=== PATIENT | male | born 2000 | race Hispanic/Latino ===

== ENCOUNTER 2018-09-02 23:40 | Emergency (ER) | payer SELFPAY ==
[2018-09-03] MEDS ORDERED: TETANUS & DIPHTHERIA TOX,ADULT 0.5 ML VIAL ONE (00:33)
[2018-09-03] MEDS ORDERED: NA CHLORIDE 0.9% 1,000 ML ONE (00:34)
[2018-09-03] MEDS ORDERED: LIDOCAINE 1% W/EPI 1:100,000 MDV 50 ML VIAL ONE (01:14)
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
--- NOTE | 2018-09-03 10:21 | RAD REPORT ---
EXAM DESCRIPTION: CT - Thorax Wo Blayne - 09/03/2018 1:56 am CLINICAL HISTORY: PAIN COMPARISON: None Available TECHNIQUE: Multiple helical axial tomographic images were obtained of the chest without intravenous contrast. Coronal and sagittal reformatted images were obtained. This exam was performed according to our departmental dose-optimization program, which includes autom ated exposure control, adjustment of the mA and/or kV according to patient size and/or use of iterati ve reconstruction technique. FINDINGS: Exam mildly limited given that the lung apices are not entirely included. Thyroid gland: unremarkable. Axilla: unremarkable. Aorta: No evidence of aortic aneurysm. Mediastinum: Unremarkable. No adenopathy. Heart: Heart is normal in size. Lungs/airways: No consolidation. Airways are patent. Pleural spaces: No significant pleural effusion. No pneumothorax. Osseous: Unremarkable. Soft tissues: Unremarkable. Visualized abdomen: Unremarkable. IMPRESSION: Mildly limited exam as above. No obvious acute intrathoracic abnormality. Electronically signed by: Gary Andre MD 09/03/2018 12:56 AM CDT Due to temporary technical issues with the PACS/Fluency reporting system, reports are being signed by the in house radiologist as a courtesy to ensure prompt reporting. The interpreting radiologist is f ully responsible for the content of the report.
== END 2018-09-03 03:33 | disposition home or self-care (01) ==
LOC: ER 23:40
PROC: 0JQ00ZZ Repair Scalp Subcutaneous Tissue and Fascia, Open Approach (ICD-10-PCS; principal; 2018-09-03)
DX: S01.81XA Laceration without foreign body of other part of head, initial encounter (principal); Y09 Assault by unspecified means; Z23 Encounter for immunization
CPT/HCPCS: 70450; 71250; 72125; 90471; 90714; 99284; J7030

== ENCOUNTER 2018-09-14 08:34 | Emergency (ER) | payer SELFPAY ==
--- NOTE | 2018-09-14 08:50 | ER ---
Nurse's Notes [facility] Name: Adam Martell Age: 17 yrs Sex: Male : 2000 Arrival Date: 09/14/2018 Time: 08:38 Bed 6 Private MD: Diagnosis: Encounter for removal of sutures-reyes Presentation: 09/14 08:48 Presenting complaint: Patient states: needs reyes removed from head. Transition of iw care: patient was not received from another setting of care. Onset of symptoms was September 03, 2018. Risk Assessment: Do you want to hurt yourself or someone else? Patient reports no desire to harm self or others. Initial Sepsis Screen: Does the patient meet any 2 criteria? No. Patient's initial sepsis screen is negative. Does the patient have a suspected source of infection? No. Patient's initial sepsis screen is negative. Care prior to arrival: None. 08:48 Method Of Arrival: Ambulatory iw 08:48 Acuity: RASHAD 5 iw Triage Assessment: 08:50 General: Appears in no apparent distress. Behavior is calm, cooperative. iw Historical: - Allergies: 08:50 No Known Allergies; iw - Home Meds: 08:51 None [Active]; iw - PMHx: 08:51 None; iw - PSHx: 08:51 None; iw - Immunization history:: Adult Immunizations unknown. - Social history:: Smoking status: unknown. - Ebola Screening: : Patient negative for fever greater than or equal to 101.5 degrees Fahrenheit, and additional compatible Ebola Virus Disease symptoms Patient denies exposure to infectious person Patient denies travel to an Ebola-affected area in the 21 days before illness onset No symptoms or risks identified at this time. Screenin:57 Abuse screen: Denies threats or abuse. Denies injuries from another. Nutritional iw screening: No deficits noted. Tuberculosis screening: No symptoms or risk factors identified. Fall Risk None identified. Assessment: 08:50 General: Appears in no apparent distress. comfortable. Pain: Denies pain. Neuro: Level iw of Consciousness is awake, alert, obeys commands, Moves all extremities. Full function. Cardiovascular: Patient's skin is warm and dry. Respiratory: Respiratory effort is even, unlabored, Respiratory pattern is regular. Derm: Skin is intact, is healthy with good turgor. Musculoskeletal: Range of motion: intact in all extremities. Vital Signs: 08:49 BP 125 / 76; Pulse 74; Resp 16; Temp 98.2; Pulse Ox 100% on R/A; Pain 0/10; iw ED Course: 08:38 Patient arrived in ED. mr 08:45 Baldemar Moses MD is Attending Physician. barry 08:46 Arleen Arshad [facility]-C [facility]. snw 08:48 Lamar Keith, RN is Primary Nurse. iw 08:49 Triage completed. iw 08:49 Arm band placed on. iw 08:50 Patient has correct armband on for positive identification. iw 08:57 No provider procedures requiring assistance completed. Patient did not have IV access iw during this emergency room visit. Administered Medications: No medications were administered Outcome: 08:49 Discharge ordered by . snw 08:57 Discharged to home ambulatory. iw 08:57 Condition: good 08:57 Discharge instructions given to patient, Instructed on discharge instructions, follow up and referral plans. Demonstrated understanding of instructions, follow-up care. 08:57 No charge visit due to suture removal. 08:58 Patient left the ED. iw Signatures: Baldemar Moses MD MD cha Therrien, Shelly, LISA HAND VIOLIN MAKER-Harveyw Nydia Oneil mr Lamar Keith, RN RN iw Corrections: (The following items were deleted from the chart) 08:49 08:48 Onset of symptoms was September 04, 2018 iw iw
--- NOTE | 2018-09-14 08:50 | EDPHYS ---
Physician Documentation [facility] Name: Adam Martell Age: 17 yrs Sex: Male : 2000 Arrival Date: 09/14/2018 Time: 08:38 Bed 6 Private MD: ED Physician Baldemar Moses HPI: 09/14 08:55 This 17 yrs old Male presents to ER via Ambulatory with complaints of Suture snw Recheck. 08:55 Patient presents to ED for recheck of: laceration. The affected area is on the right snw side of the back of head. Progress: The patient reports excellent improvement in the affected area. There has been resolution, improvement, or non-development of any drainage, fever, pain, redness or swelling. The patient has not experienced similar symptoms in the past. The patient has been recently seen by a physician: The patient has been recently seen at the [facility] Emergency Department, last week. Historical: - Allergies: 08:50 No Known Allergies; iw - Home Meds: 08:51 None [Active]; iw - PMHx: 08:51 None; iw - PSHx: 08:51 None; iw - Immunization history:: Adult Immunizations unknown. - Social history:: Smoking status: unknown. - Ebola Screening: : Patient negative for fever greater than or equal to 101.5 degrees Fahrenheit, and additional compatible Ebola Virus Disease symptoms Patient denies exposure to infectious person Patient denies travel to an Ebola-affected area in the 21 days before illness onset No symptoms or risks identified at this time. ROS: 08:50 Constitutional: Negative for fever, chills, and weight loss, Eyes: Negative for injury, snw pain, redness, and discharge, ENT: Negative for injury, pain, and discharge, Neck: Negative for injury, pain, and swelling, Cardiovascular: Negative for chest pain, palpitations, and edema, Respiratory: Negative for shortness of breath, cough, wheezing, and pleuritic chest pain, Abdomen/GI: Negative for abdominal pain, nausea, vomiting, diarrhea, and constipation, Back: Negative for injury and pain, : Negative for injury, bleeding, discharge, and swelling, MS/Extremity: Negative for injury and deformity, Neuro: Negative for headache, weakness, numbness, tingling, and seizure. 08:50 Skin: Positive for staple removal. Exam: 08:50 Constitutional: This is a well developed, well nourished patient who is awake, alert, snw and in no acute distress. Eyes: Pupils equal round and reactive to light, extra-ocular motions intact. Lids and lashes normal. Conjunctiva and sclera are non-icteric and not injected. Cornea within normal limits. Periorbital areas with no swelling, redness, or edema. ENT: Nares patent. No nasal discharge, no septal abnormalities noted. Tympanic membranes are normal and external auditory canals are clear. Oropharynx with no redness, swelling, or masses, exudates, or evidence of obstruction, uvula midline. Mucous membranes moist. Neck: Trachea midline, no thyromegaly or masses palpated, and no cervical lymphadenopathy. Supple, full range of motion without nuchal rigidity, or vertebral point tenderness. No Meningismus. Chest/axilla: Normal chest wall appearance and motion. Nontender with no deformity. No lesions are appreciated. Cardiovascular: Regular rate and rhythm with a normal S1 and S2. No gallops, murmurs, or rubs. Normal PMI, no JVD. No pulse deficits. Respiratory: Lungs have equal breath sounds bilaterally, clear to auscultation and percussion. No rales, rhonchi or wheezes noted. No increased work of breathing, no retractions or nasal flaring. Abdomen/GI: Soft, non-tender, with normal bowel sounds. No distension or tympany. No guarding or rebound. No evidence of tenderness throughout. Back: No spinal tenderness. No costovertebral tenderness. Full range of motion. Skin: Warm, dry with normal turgor. Normal color with no rashes, no lesions, and no evidence of cellulitis. MS/ Extremity: Pulses equal, no cyanosis. Neurovascular intact. Full, normal range of motion. Neuro: Awake and alert, GCS 15, oriented to person, place, time, and situation. Cranial nerves II-XII grossly intact. Motor strength 5/5 in all extremities. Sensory grossly intact. Cerebellar exam normal. Normal gait. 08:50 Head/face: Noted is contusion, that is deep, of the left eye, right parietal laceration repair with three reyes, well approximated, reyes removed. Vital Signs: 08:49 BP 125 / 76; Pulse 74; Resp 16; Temp 98.2; Pulse Ox 100% on R/A; Pain 0/10; iw MDM: 08:45 Patient medically screened. [facility] 08:53 Data reviewed: vital signs, nurses notes. Data interpreted: Pulse oximetry: on room air snw is 100 %. Counseling: I had a detailed discussion with the patient and/or guardian regarding: the historical points, exam findings, and any diagnostic results supporting the discharge/admit diagnosis, the need for outpatient follow up, to return to the emergency department if symptoms worsen or persist or if there are any questions or concerns that arise at home. Special discussion: Based on the history and exam findings, there is no indication for further emergent testing or inpatient evaluation. I discussed with the patient/guardian the need to see the primary care provider for further evaluation of the symptoms. Administered Medications: No medications were administered Disposition: 09:23 Co-signature as Attending Physician, Baldemar Moses MD I agree with the assessment and [facility] plan of care. Disposition: 09/14/18 08:49 Discharged to Home. Impression: Encounter for removal of sutures - reyes. - Condition is Stable. - Discharge Instructions: Suture Removal, Care After, Head Injury, Adult, [id number], Incision Care, [id number]. - Medication Reconciliation Form, Thank You Letter, Antibiotic Education, Prescription Opioid Use form. - Follow up: Private Physician; When: 2 - 3 days; Reason: Recheck today's complaints, Continuance of care, Re-evaluation by your physician. Follow up: Emergency Department; When: As needed; Reason: Worsening of condition. Signatures: Baldemar Moses MD MD cha Therrien, Shelly, CORN CUTTER-C CORN CUTTER-Csnw Lamar Keith RN RN iw Corrections: (The following items were deleted from the chart) 08:58 08:49 09/14/2018 08:49 Discharged to Home. Impression: Encounter for removal of sutures iw - reyes. Condition is Stable. Forms are Medication Reconciliation Form, Thank You Letter, Antibiotic Education, Prescription Opioid Use. Follow up: Private Physician; When: 2 - 3 days; Reason: Recheck today's complaints, Continuance of care, Re-evaluation by your physician. Follow up: Emergency Department; When: As needed; Reason: Worsening of condition. snw
== END 2018-09-14 08:58 | disposition home or self-care (01) ==
LOC: ER 08:34
DX: Z48.02 Encounter for removal of sutures (principal)